=== PATIENT | male | born 1960 | race American Indian/Alaskan Native ===

== ENCOUNTER 2018-02-10 11:30 | Emergency (ER) | payer SELFPAY ==
[2018-02-10 12:51] LABS: Basophils % (Auto) 0.8 % (0.0-1.8); Eosinophils # (Auto) 0.2 K/mm3 (0.0-0.4); Eosinophils % (Auto) 5.5 % (0.0-4.3); Hematocrit 38.5 % (35.5-45.6); Hemoglobin 12.6 gm/dl (11.8-15.2); Lymphocytes # (Auto) 1.5 K/mm3 (1.2-5.4); Lymphocytes % (Auto) 48.2 % (13.4-35.0); Mean Corpuscular HGB Conc 33 % (32-34); Mean Corpuscular Hemoglobin 28 pg (28-32); Mean Corpuscular Volume 86 fl (84-94); Monocytes # (Auto) 0.3 K/mm3 (0.0-0.8); Monocytes % (Auto) 9.3 % (0.0-7.3); Platelet Count 208 K/mm3 (140-440); Red Blood Count 4.47 M/mm3 (3.65-5.03); Red Cell Distribution Width 14.9 % (13.2-15.2)
[2018-02-10 13:11] LABS: BUN/Creatinine Ratio 27; Blood Urea Nitrogen 16 mg/dL (9-20); Calcium 8.8 mg/dL (8.4-10.2); Hemolysis Index 13
[2018-02-10 13:44] LABS: INR 0.95 (0.87-1.13)
--- NOTE | 2018-02-10 13:44 | Cat Scan Report ---
FINAL REPORT EXAM: CT HEAD/BRAIN WO CON HISTORY: neuro deficits < 6hrs or sx present upon awakening TECHNIQUE: CT of the head was performed without intravenous contrast. PRIORS: None. FINDINGS: The ventricles are normal in shape and position. The ventricles are nondilated. No intracranial hemorrhage, mass, mass effect, midline shift or evidence of acute ischemic infarct. The basilar cisterns are patent. Mucosal thickening of the paranasal sinuses is likely congestive or inflammatory. The extracranial soft tissues demonstrate no abnormality. The calvarium is intact. The orbits are intact. The mastoid air cells are clear. IMPRESSION: No acute intracranial abnormality.
[2018-02-10 13:45] LABS: Partial Thromboplastin Time 28.7 Sec. (24.2-36.6)
--- NOTE | 2018-02-10 14:14 | Emergency Department Report ---
ED Neuro Deficit HPI - General Chief Complaint: Neuro Symptoms/Deficit Stated Complaint: L EYE AND SIDE NUMB Time Seen by Provider: 02/10/18 13:36 Source: patient, RN notes reviewed Mode of arrival: Ambulatory Limitations: No Limitations - History of Present Illness Initial Comments: This is a 57-year-old male who was previously unknown to this provider. His primary care doctor is Dr. Kent, and he endorses a past medical history of hypertension. He presents to the ER with a complaint of one and a half days of left-sided facial droop. It is painless, constant, does not radiate anywhere, does not have exacerbating or relieving factors. He denies recent travel, denies tinnitus, denies vertigo. He also denies skin lesion. He denies other neurologic complaints, with the exception of headache which started 2 weeks ago and is now currently resolved. Patient denies recent trips to [place] or [place] areas. -: Gradual, hour(s) Location: left face Presenting Symptoms: Absent: Weak/Paralyzed One Side, Sudden, Severe Headache, Blurred/Loss of Vision, Facial Droop/Numbness, Unable to Speak Clearly, Altered Mental Status History of same: No Place: home Severity: moderate Quality: numb Improves With: none Worsens With: none On Anticoagulants: No Context: gradual onset Associated Symptoms: denies other symptoms, headaches. denies: confusion, chest pain, cough, diaphoresis, fever/chills, loss of appetite, malise, nausea/ vomiting, vertigo, seizures, shortness of breath, syncope, weakness - Related Data Home Medications: Previous Rx's Medication Instructions Recorded Last Taken Type Aspirin 325 mg PO QDAY #30 tablet 02/10/18 Unknown Rx Mineral Oil/Petrolatum,White 3.5 gm OS Q1HR PRN #1 oint...g. 02/10/18 Unknown Rx [Refresh Lacri-Lube Ointment] predniSONE [Deltasone] 60 mg PO QDAY #12 tablet 02/10/18 Unknown Rx Allergies/Adverse Reactions: Allergies Allergy/AdvReac Type Severity Reaction Status Date / Time amoxicillin Allergy Unknown Verified 02/10/18 12:08 ED Review of Systems ROS: Stated complaint: L EYE AND SIDE NUMB Other details as noted in HPI Comment: All other systems reviewed and negative ED Past Medical Hx - Past Medical History Hx Hypertension: Yes - Surgical History Past Surgical History?: No - Social History Smoking Status: Former Smoker Substance Use Type: None - Medications Home Medications: Home Medications Medication Instructions Recorded Confirmed Last Taken Type Aspirin 325 mg PO QDAY #30 tablet 02/10/18 Unknown Rx Mineral Oil/Petrolatum,White 3.5 gm OS Q1HR PRN #1 oint...g. 02/10/18 Unknown Rx [Refresh Lacri-Lube Ointment] predniSONE [Deltasone] 60 mg PO QDAY #12 tablet 02/10/18 Unknown Rx ED Neuro Physical Exam - General Limitations: No Limitations General appearance: alert, in no apparent distress Suspected Stroke: No - Head Head exam: Present: atraumatic, normocephalic - Eye Eye exam: Present: normal appearance, PERRL, EOMI, other (visual acuity intact to finger counting, color perception, reading at a close distance). Absent: nystagmus - ENT ENT exam: Present: normal exam, normal orophraynx, mucous membranes moist, TM's normal bilaterally, normal external ear exam, other (no vesicles are noted) - Neck Neck exam: Present: normal inspection, full ROM - Respiratory Respiratory exam: Present: normal lung sounds bilaterally. Absent: respiratory distress - Cardiovascular Cardiovascular Exam: Present: regular rate, normal rhythm, normal heart sounds. Absent: bradycardia, tachycardia, irregular rhythm, systolic murmur, diastolic murmur, rubs, gallop - GI/Abdominal GI/Abdominal exam: Present: soft, normal bowel sounds. Absent: distended, tenderness, guarding, rebound, rigid, pulsatile mass - Rectal Rectal exam: Present: deferred - Extremities Exam Extremities exam: Present: normal inspection, full ROM, normal capillary refill. Absent: tenderness, pedal edema, joint swelling, calf tenderness - Back Exam Back exam: Present: normal inspection, full ROM. Absent: tenderness, CVA tenderness (R), CVA tenderness (L), muscle spasm, paraspinal tenderness, vertebral tenderness - Neurological Exam Neurological exam: Present: alert, oriented X3, other. Absent: CN II-XII intact (there is a left-sided facial droop. The left forehead is partially spared but not completely spared. Patient is able to close the left eye. He is able to partially elevate the left eyebrow. The right eyebrow is fully functional. Extraocular movements are intact. Tongue is midline. Hearing is intact bilaterally. Shoulder shrug is intact bilaterally. Speaking in full sentences.), motor sensory deficit - NIHSS Assessment Interval: Baseline 1a. Level of Consciousness: alert 1b. LOC Questions: answers correctly 1c. LOC Commands: performs tasks correctly 2. Best Gaze: normal 3. Visual: no visual loss 4. Facial Palsy: partial paralysis 5b. Motor Arm Right: no drift 5a. Motor Arm Left: no drift 6a. Motor Leg Left: no drift 6b. Motor Leg Right: no drift 7. Limb Ataxia: absent 8. Sensory: normal 9. Best Language: no aphasia 10. Dysarthria: normal 11. Extinction/Inattention: no abnormality Total Score: 2 Stroke Severity: Minor Stroke - Psychiatric Psychiatric exam: Present: normal affect, normal mood - Skin Skin exam: Present: warm, dry, intact, normal color. Absent: rash ED Course Vital Signs 02/10/18 02/10/18 12:08 14:29 Temperature 98.3 F Pulse Rate 71 73 Respiratory 17 18 Rate Blood Pressure 139/81 Blood Pressure 124/92 [Left] O2 Sat by Pulse 99 97 Oximetry - Reevaluation(s) Reevaluation #1: 02/10/18 15:48 Patient reassessed. His neurologic examination is unchanged. MRI is negative. MRA is negative. Patient will be started empirically on aspirin therapy, steroids, and he will be instructed to follow up with outpatient neurology. - Lab Data Result diagrams: 02/10/18 12:31 02/10/18 12:31 Lab Results 02/10/18 02/10/18 02/10/18 Range/Units 12:31 12:31 12:31 WBC 3.2 L (4.5-11.0) K/mm3 RBC 4.47 (3.65-5.03) M/mm3 Hgb 12.6 (11.8-15.2) gm/dl Hct 38.5 (35.5-45.6) % MCV 86 (84-94) fl MCH 28 (28-32) pg MCHC 33 (32-34) % RDW 14.9 (13.2-15.2) % Plt Count 208 (140-440) K/mm3 Lymph % (Auto) 48.2 H (13.4-35.0) % [place] % (Auto) 9.3 H (0.0-7.3) % Eos % (Auto) 5.5 H (0.0-4.3) % Baso % (Auto) 0.8 (0.0-1.8) % Lymph # 1.5 (1.2-5.4) K/mm3 [place] # 0.3 (0.0-0.8) K/mm3 Eos # 0.2 (0.0-0.4) K/mm3 Baso # 0.0 (0.0-0.1) K/mm3 Seg Neutrophils % 36.2 L (40.0-70.0) % Seg Neutrophils # 1.1 L (1.8-7.7) K/mm3 PT 13.1 (12.2-14.9) Sec. INR 0.95 (0.87-1.13) APTT 28.7 (24.2-36.6) Sec. Thrombin Time (15.1-19.6) Sec. Sodium 136 L (137-145) mmol/L Potassium 4.3 (3.6-5.0) mmol/L Chloride 98.0 (98-107) mmol/L Carbon Dioxide 25 (22-30) mmol/L Anion Gap 17 mmol/L BUN 16 (9-20) mg/dL Creatinine 0.6 L (0.8-1.5) mg/dL Estimated GFR > 60 ml/min BUN/Creatinine Ratio 27 % Glucose 89 (75-100) mg/dL Calcium 8.8 (8.4-10.2) mg/dL Troponin T < 0.010 (0.00-0.029) ng/mL 02/10/18 Range/Units 12:31 WBC (4.5-11.0) K/mm3 RBC (3.65-5.03) M/mm3 Hgb (11.8-15.2) gm/dl Hct (35.5-45.6) % MCV (84-94) fl MCH (28-32) pg MCHC (32-34) % RDW (13.2-15.2) % Plt Count (140-440) K/mm3 Lymph % (Auto) (13.4-35.0) % [place] % (Auto) (0.0-7.3) % Eos % (Auto) (0.0-4.3) % Baso % (Auto) (0.0-1.8) % Lymph # (1.2-5.4) K/mm3 [place] # (0.0-0.8) K/mm3 Eos # (0.0-0.4) K/mm3 Baso # (0.0-0.1) K/mm3 Seg Neutrophils % (40.0-70.0) % Seg Neutrophils # (1.8-7.7) K/mm3 PT (12.2-14.9) Sec. INR (0.87-1.13) APTT (24.2-36.6) Sec. Thrombin Time 16.0 (15.1-19.6) Sec. Sodium (137-145) mmol/L Potassium (3.6-5.0) mmol/L Chloride (98-107) mmol/L Carbon Dioxide (22-30) mmol/L Anion Gap mmol/L BUN (9-20) mg/dL Creatinine (0.8-1.5) mg/dL Estimated GFR ml/min BUN/Creatinine Ratio % Glucose (75-100) mg/dL Calcium (8.4-10.2) mg/dL Troponin T (0.00-0.029) ng/mL - EKG Data -: EKG Interpreted by [place] EKG shows normal: sinus rhythm, axis, intervals, QRS complexes When compared to previous EKG there are: previous EKG unavailable - Radiology Data Radiology results: report reviewed, image reviewed Noncontrast CT scan of the brain is negative for acute findings. - Medical Decision Making Differential diagnosis, including but not limited to: bells palsy, peripheral facial nerve palsy, central facial nerve palsy assessment and plan: 57-year-old male With left-sided facial droop, with incomplete sparing of the left forehead. Given this finding, we will obtain MRI with and without contrast, MRA angiogram of the brain to differentiate peripheral versus central causes. The case and physical exam findings and CT scan findings were relayed to the consulting stroke neurologist, Dr. Lorena Mcgraw. We have shared opinion that if the MRI/ MRA is unremarkable it would Be reasonable to discharge the patient with aspirin and with steroids. - Core Measures Measure Exclusions: not indicated - Thrombolytic Inclusion/Exclusion Thrombolytic Exclusion Criteria: Symptom Onset > 3 Hours Critical care attestation.: If time is entered above; I have spent that time in minutes in the direct care of this critically ill patient, excluding procedure time. ED Disposition Clinical Impression: Facial droop Disposition: DC-01 TO HOME OR SELFCARE Is pt being admited?: No Does the pt Need Aspirin: No Condition: Good Instructions: [place] Palsy (ED) Additional Instructions: Take the medications as directed. Follow-up with primary care doctor or neurology specialist within the next 7-10 days. Use artificial tears/ointment in the left eye as often as as needed and as directed. Make certain to apply the artificial tears at least once an hour, as the facial nerve palsy puts the eye at risk for drying out and corneal abrasions. Return to the ER right away with fevers, chills, chest pain, shortness of breath , intractable nausea or vomiting, confusion, inability to tolerate liquid feeds. Referrals: CHALO PRESTON MD [Referring] - 3-5 Days AMINA PANG MD [Staff Physician] - 3-5 Days RACHELLE GOMEZ MD [Staff Physician] - 3-5 Days
[2018-02-10 14:29] VITALS: BP 124/92
--- NOTE | 2018-02-10 15:38 | Magnetic Resonance Report ---
MRI OF THE BRAIN WITHOUT CONTRAST: HISTORY: Facial droop. COMPARISON: CT head dated 02/10/18. PROCEDURE: Multiplanar, multisequence MR imaging of the brain without IV contrast was performed. FINDINGS: Minimal nonspecific chronic white matter changes are noted bilaterally. Otherwise, the brain parenchyma signal intensity and its patrick white interface are within normal limits on all sequences. No evidence for acute ischemia, hemorrhage or mass. No chronic infarct or extra-axial fluid collection. The midline structures are central. The basal cisterns are patent. Normal ventricular size. The orbital cavities and sella turcica demonstrate no abnormality. Mild to moderate mucosal thickening is noted throughout all paranasal sinuses. The mastoid air cells are clear. IMPRESSION: No acute intracranial process. Minimal nonspecific chronic white matter changes.
--- NOTE | 2018-02-10 15:39 | Magnetic Resonance Report ---
MRA HEAD WITHOUT CONTRAST HISTORY: Facial droop. [id number] imaging with MIP reformations of the torres [facility]inez of [place] is submitted. The arteries appear widely patent and free of hemodynamically significant stenosis, aneurysm or dissection. IMPRESSION: Unremarkable MRA head.
[2018-02-10] MEDS ORDERED: DELTASONE PO ONE (15:49)
== END 2018-02-10 16:23 | disposition home or self-care (01) ==
LOC: ED 11:30
DX: R29.810 Facial weakness (principal); I10 Essential (primary) hypertension; Z88.1 Allergy status to other antibiotic agents; Z87.891 Personal history of nicotine dependence; R51 Headache
CPT/HCPCS: 36415; 70450; 70544; 70551; 80048; 84484; 85025; 85610; 85670; 85730; 93005; 93010; 99284; J7512